=== PATIENT | male | born 1980 | race Caucasian/White ===

== ENCOUNTER 2024-10-25 21:55 | Emergency (ER) | payer MEDICARE, OTHER ==
[~2024-10-25] VITALS: Ht 190.5 cm; Wt 128.0 kg
[2024-10-25] MEDS ORDERED: AMOX TR-K CLV1 EAC1 PO (23:02)
[2024-10-25] MEDS ORDERED: AMOXICILLIN/CLAVULANATE K 875 MG HOME.PACK PO ONE (23:15)
[2024-10-25] MEDS ORDERED: DIPHTH,PERTUSS(ACELL),TET VAC 0.5 ML SYRINGE IM ONE (23:15)
[2024-10-25 23:16] VITALS: BP 141/87
== END 2024-10-25 23:19 | disposition home or self-care (01) ==
LOC: ED 21:55
DX: S60.352A Superficial foreign body of left thumb, initial encounter (principal); W45.8XXA Other foreign body or object entering through skin, initial encounter; W20.8XXA Other cause of strike by thrown, projected or falling object, initial encounter; Z91.013 Allergy to seafood; Z91.041 Radiographic dye allergy status